=== PATIENT | female | born 1995 | race African-American/Black ===

== ENCOUNTER 2020-04-02 13:22 | Emergency (ER) | payer OTHER ==
[~2020-04-02] VITALS: Ht 167.6 cm; Wt 59.0 kg
[2020-04-02] MEDS ORDERED: ACETAMINOPHEN 325MG TABLET PO ONE (16:00)
[2020-04-02] MEDS ORDERED: TETANUS, DIPHTHERIA, PERTUSSIS VAC/PF 0.5ML (>7YR OLD) IM ONE (16:00)
[2020-04-02] MEDS ORDERED: BACITRACIN ZINC OINT UDPKT TOP ONE (16:00)
[2020-04-02] MEDS ORDERED: LIDOCAINE 1%/EPI 1:100,000 10 ML VIAL IJ ONE (16:00)
[2020-04-02 16:30] VITALS: BP 110/78
== END 2020-04-02 16:31 | disposition home or self-care (01) ==
LOC: ER 13:39
DX: S71.111A Laceration without foreign body, right thigh, initial encounter (principal); W22.8XXA Striking against or struck by other objects, initial encounter; Y93.89 Activity, other specified; Y92.89 Other specified places as the place of occurrence of the external cause; Y99.8 Other external cause status
CPT/HCPCS: 12002; 90715; 99283; J3490

== ENCOUNTER 2020-04-04 10:30 | Emergency (ER) | payer OTHER ==
[~2020-04-04] VITALS: Ht 167.6 cm; Wt 58.0 kg
[2020-04-04 10:33] VITALS: BP 107/78
[2020-04-04] MEDS ORDERED: BACITRACIN ZINC OINT UDPKT TOP ONE (11:00)
== END 2020-04-04 11:10 | disposition home or self-care (01) ==
LOC: ER 10:30
DX: S71.111D Laceration without foreign body, right thigh, subsequent encounter (principal); X58.XXXD Exposure to other specified factors, subsequent encounter
CPT/HCPCS: 99282